=== PATIENT | female | born 1965 ===

== ENCOUNTER 2022-01-31 20:13 | Inpatient (IN) | payer OTHER ==
[~2022-01-31] VITALS: Ht 162.6 cm; Wt 86.8 kg
[2022-02-01] MEDS ORDERED: AMLODAPINE (00:44)
--- NOTE | 2022-02-01 07:37 | NUR ---
SUMMARY OF EVENTS. PT ARRIVED VIA TRANSPORT TEAM AT APPROXIMATELY 2250. PT ON VENTILATOR AND SEDATED WITH PROPOFOL AT 25 MCG/KG/MIN, LEVOPHED RUNNING AT 7 MCG/KG/HR. DR. GAN AND DR. FIELDS CONTACTED, ORDERS OBTAINED FOR LR INFUSION, ANTIBIOTICS, FENTANYL WATCH CASER FOR PAIN AND ALBUMIN. R/IJ CENTRAL LINE PLACED BY DR. GILLIS FOR IV ACCESS. LEVOPHED TITRATED OFF DURING SHIFT. CURRENTLY PT VENT SETTINGS AC/VC 16/450/5/40%, IV PUMPS RUNNING PROPOFOL AT 40 MCG/KG/MIN, FENTANYL WATCH CASER 50 MCG/HR, LR 150 ML/HR. VS STABLE THROUGHOUT SHIFT, SEE ASSESSMENT FOR FURTHER DETAILS. REPORT GIVEN TO ATTILA SANDERS.
[2022-02-01 08:38] LABS: Hemoglobin 11.4 g/dL (11.5-16.0); Mean Corpuscular HGB 30.6 pg (26.0-34.0); Mean Corpuscular HGB Conc 32.6 g/dL (31.5-36.5); Mean Corpuscular Volume 94 fL (80-100); Mean Platelet Volume 10.2 fL (9.1-12.4); Platelet Count 150 K/mm3 (150-400); RDW Standard Deviation 48.2 fL (35.1-46.3); Red Blood Cell Count 3.73 M/mm3 (3.80-5.20); White Blood Cell Count 3.21 K/mm3 (4.00-11.30)
[2022-02-01 08:55] LABS: Albumin, Blood 3.7 g/dL (3.4-5.0); Anion Gap 11 mmol/L (6-16); Blood Urea Nitrogen 33 mg/dL (8-24); Bun/Creatinine Ratio 24.8 (12.0-20.0); CO2, Blood 24 mmol/L (21-32); Calcium, Blood 8.1 mg/dL (8.5-10.1); Chloride, Blood 109 mmol/L (98-108); Creatinine, Blood 1.33 mg/dL (0.40-1.00); Glomerular Filtration Rate 41 (60-); Glucose, Blood 147 mg/dL (70-99); Phosphorus, Blood 5.5 mg/dL (2.5-4.9); Potassium, Blood 4.2 mmol/L (3.5-5.5); Sodium, Blood 144 mmol/L (136-145)
--- NOTE | 2022-02-01 08:55 | NUR ---
ASSUMED CARE OF PT, REPORT RCV'D FROM MARILYN MCDERMOTT. PT INTUBATED AND SEDATED. PT PLACED ON SPONTANEOUS VENT SETTINGS THIS MORNING, PT TOLERATING WELL. PROPOFOL @ 40 MCG/KG/MIN, FENTANYL GTT @ 50 MCG/HR. PT WAKES TO VERBAL STIMULATION, NODS HEAD YES/NO, FOLLOWS COMMANDS. LUQ OSTOMY, VERY MINIMAL SANGUINOUS OUTPUT. RLQ LETI DRAIN WITH 40 ML SEROSANGUINOUS OUTPUT. MIDLINE DRESSING C/D/I. ABDOMEN FIRM WITH SEVERE DISTENTION, TENDER TO PALPATION. BOWEL TONES PRESENT. TEMP PEREZ PLACED AT [facility] IN [place] (UA AND INSERTION RECORDS ON CHART) TOMÁS COLORED URINARY OUTPUT. VSS AT THIS TIME. LEVOPHED REMAINS ON STANDBY, PLAN FOR EXTUBATION.
--- NOTE | 2022-02-01 09:41 | NUR ---
PT EXTUBATED TO 3LNC @0930. SATS 95%, HR 118. PT SON ON HIS WAY TO VISIT.
[2022-02-01 10:06] LABS: BAND PERCENT MAN 20 % (0-8); BASOPHILS PERCENT MAN 0 % (0-2); EOSINOPHILS PERCENT MAN 0 % (0-6); LYMPHOCYTES ABSOLUTE MAN 0.38 K/mm3 (0.84-5.20); LYMPHOCYTES PERCENT MAN 12 % (21-46); METAMYELOCYTE ABSOLUTE MAN 0.89 K/mm3 (0.00-0.00); METAMYELOCYTE PERCENT MAN 28 % (0-0); MONOCYTES ABSOLUTE MAN 0.28 K/mm3 (0.16-1.47); MONOCYTES PERCENT MAN 9 % (4-13); MYELOCYTE ABSOLUTE MAN 0.67 K/mm3 (0.00-0.00); MYELOCYTE PERCENT MAN 21 % (0-0); NEUTROPHILS ABSOLUTE MAN 0.96 K/mm3 (1.96-9.15); SEG NEUTROPHILS PERCENT MAN 10 % (41-73); TOTAL CELLS COUNTED 100
--- NOTE | 2022-02-01 10:51 | NUR ---
PT ALERT AND ORIENTED. FENTANYL GTT INFUSING AT 50 MCG/HR, PT DENIES PAIN AT THIS TIME. VSS. TRANSFER ORDER PLACED FOR SURGICAL STATUS WITH TELE.
--- NOTE | 2022-02-01 13:43 | NUR ---
PATIENT ARRIVED FROM ICU TODAY 02/01/22 AT 1230. PATIENT IS A&OX4. SHE IS ON 3L NC OF OXYGEN. NG TUBE IS CONNECTED TO LOW INTERMITTENT SUCTION WITH GREEN COLOR COMING OUT AN OUTPUT. OSTOMY IN LEFT QUADRANT HAS A PINK STOMA WITH LIGHT RED OUTPUT. HER ZHEN DRAIN IS ON HER RIGHT LOWER QUADRANT THAT HAS RED OUTPUT BUT THE BULB IS STILL COMPRESSED. PATIENT REPORTS HER STOMACH BEING TENDER TO TOUCH. FAMILY IS IN THE ROOM AT BEDSIDE. CALL LIGHT WITHIN REACH.
--- NOTE | 2022-02-01 17:28 | NUR ---
SHIFT SUMMARY: POD 1 HEMICOLECTOMY WITH OSTOMY PATIENT IS A&OX4. VS ARE WNL AND IS ON 4L NC OF OXYGEN. PAIN IS MANAGED WITH FENT TITLE SEARCH MANAGER PUMP. MIDLINE INCISION IS C/D/I. OSTOMY ON THE LUQ IS INTACT WITH LIGHT RED OUTPUT. STOMA IS PINK. ZHEN DRAIN ON THE RLQ HAS RED OUTPUT BUT BULB IS STILL COMPRESSED AND SITE IS INTACT. NG TUBE IS SECURED AND IS ON LOW INTERMITTENT SUCTIONING. OUTPUT OF NG TUBE IS A DARK GREEN COLOR. PATIENT IS TOLERATING ICE CHIPS. PEREZ IS IN PLACE AND DRAINING PER GRAVITY. CENTRAL LINE ON RIGHT SIDE OF NECK IS INFUSING THE TITLE SEARCH MANAGER FENT WELL ABX. CALL LIGHT WITHIN REACH. AT BEDSIDE. THE PLAN IS TO ENCOURAGE PATIENT TO GET UP IN CHAIR DAILY AND TO USE INCENTIVE SPIROMETER.
--- NOTE | 2022-02-02 04:34 | NUR ---
PT IS A&0X4, INDEPENDENT IN BED AND IS ABLE TO MAKE NEEDS KNOWN. TRANSFERRED TO [facility] FROM [facility] IN [place], PT HAD ELISSA COLECTOMY W/ OSTOMY PLACED IN LUQ W/ SMALL REDISH OUTPUT. PAIN IS WELL CONTROLLED WITH MANAGER USER EXPERIENCE PUMP. PT ABLE TO SLEEP MOST OF THIS SHIFT 7+ HOURS, RECEIVING SCHEDULED ABX. HAS TRIPPLE LUMEN IJ IN PLACE FOR ABX THERAPY. NG TUBE SET TO LOW INTERMITTENT SUCTION, PRODUCING GREENISH OUTPUT. ZHEN DRAIN IN RUQ, SCANT OUTPUT THIS SHIFT. PT CALLS APPROPRIATELY. WILL CONTINUE TO MONITOR.
[2022-02-02 04:41] LABS: Hematocrit 34.1 % (33.0-51.0); Hemoglobin 11.1 g/dL (11.5-16.0); Mean Corpuscular HGB 30.7 pg (26.0-34.0); Mean Corpuscular HGB Conc 32.6 g/dL (31.5-36.5); Mean Corpuscular Volume 94 fL (80-100); Mean Platelet Volume 10.5 fL (9.1-12.4); Platelet Count 133 K/mm3 (150-400); RDW Coefficient Variation 14.3 % (11.7-14.2); RDW Standard Deviation 49.8 fL (35.1-46.3); Red Blood Cell Count 3.62 M/mm3 (3.80-5.20); White Blood Cell Count 5.77 K/mm3 (4.00-11.30)
[2022-02-02 05:02] LABS: Albumin, Blood 3.1 g/dL (3.4-5.0); Anion Gap 6 mmol/L (6-16); Blood Urea Nitrogen 21 mg/dL (8-24); Bun/Creatinine Ratio 29.4 (12.0-20.0); CO2, Blood 30 mmol/L (21-32); Calcium, Blood 8.1 mg/dL (8.5-10.1); Chloride, Blood 108 mmol/L (98-108); Creatinine, Blood 0.72 mg/dL (0.40-1.00); Glomerular Filtration Rate >60 (60-); Glucose, Blood 97 mg/dL (70-99); Phosphorus, Blood 2.8 mg/dL (2.5-4.9); Potassium, Blood 3.7 mmol/L (3.5-5.5); Sodium, Blood 144 mmol/L (136-145)
[2022-02-02 05:21] LABS: BAND PERCENT MAN 46 % (0-8); BASOPHILS PERCENT MAN 0 % (0-2); EOSINOPHILS PERCENT MAN 0 % (0-6); LYMPHOCYTES ABSOLUTE MAN 0.75 K/mm3 (0.84-5.20); LYMPHOCYTES PERCENT MAN 13 % (21-46); METAMYELOCYTE ABSOLUTE MAN 0.17 K/mm3 (0.00-0.00); METAMYELOCYTE PERCENT MAN 3 % (0-0); MONOCYTES ABSOLUTE MAN 0.05 K/mm3 (0.16-1.47); MONOCYTES PERCENT MAN 1 % (4-13); MYELOCYTE ABSOLUTE MAN 0.11 K/mm3 (0.00-0.00); MYELOCYTE PERCENT MAN 2 % (0-0); NEUTROPHILS ABSOLUTE MAN 4.67 K/mm3 (1.96-9.15); SEG NEUTROPHILS PERCENT MAN 35 % (41-73); TOTAL CELLS COUNTED 100
--- NOTE | 2022-02-02 05:24 | NUR ---
PT IS A&OX4, INDEPENDENT IN BED AND CALLS APPROPRIATELY. ADMITED FOR ABD AND CONSTIPATION, PT REPORTED NO BM FOR ABOUT 2 WEEKS. PAIN IS CONTROLLED WITH PRN FENTANYL. PT ALSO HAS HX OF ANXIETY, PRN ATIVAN GIVEN. UNABLE TO GIVE PT PO BOWEL MEDICATION, PT UNABLE TO TOLERATE AND BECAME NAUSEOUS AFTER TRYING TO SWALLOW LACTULOSE. NO BMS OR PASSAGE OF FLATUS THIS SHIFT. PT ABLE TO SLEEP 6+ HOURS. WILL CONTINUE TO MONITOR.
--- NOTE | 2022-02-02 12:30 | NUR ---
EKG DONE & IN CHART. DR GAN TO REVIEW.
--- NOTE | 2022-02-02 13:30 | NUR ---
DR GAN REVIEWED EKG. NO NEW ORDERS AT THIS TIME. STATES PATIENT REMAINS ASYMPTOMATIC. CONTINUE TELEMTRY MONITORING.
--- NOTE | 2022-02-02 15:15 | NUR ---
PATIENT C/O CHEST TIGHTNESS & DIFFICULTY BREATHING. ROAD CUTTER JAY GAN, GAVE ORDERS FOR A STAT CT TO RULE OUT A PE.
--- NOTE | 2022-02-02 16:00 | NUR ---
PATIENT REUTURNED FROM IMAGING. NG TUBE ON LOW INT SUCTION.
--- NOTE | 2022-02-02 16:40 | NUR ---
PATIENT TO IMAGING VIA GURNEY. NG TUBE CLAMPED.
--- NOTE | 2022-02-02 17:59 | NUR ---
SHIFT SUMMARY POD 2 COLECTOMY W/ OSTOMY TO LUQ. SCANT AMOUNT OF DRAINAGE T/O SHIFT. LIQUID RED/PINK IN COLOR. ZHEN IN PLACE TO RUQ, ALLAN SS LIQUID. NGTUBE IN PLACE, LIGHT GREEN LIQUID DRAINING TO LOW INT SUCTION. GENEROUS AMOUNT OF ICE CHIPS TAKEN IN TODAY, EDUCATED PATIENT ON PO INTAKE AT THIS TIME AND ENCOURAGED TO TAKE SLOW. ANA REMOVED THIS AM. UP TO CHAIR & BEDSIDE COMMODE THROUGHOUT DAY, TOLERATED WELL, WEAK THROUGHOUT. PAIN MANAGED WITH FENTANYL POLICY SERVICE COORDINATOR PUMP. PATIENT HAD EPISODE OF CHEST TIGHTNESS AND SOB, CT SCAN ORDERED BY MD AND AWAITING RESULTS. ENCOURAGED TO NOTIFY STAFF OF ACUTE CHANGES IMMEDIETLY. HEART RATE REMAINS TACHY IN 130'S, MD AWARE, TELE IN PLACE. PATIENT REPORTS FEELING BETTER THIS AFTERNOON. WILL CONTINUE TO MONITOR & REPORT TO ONCOMING RN.
--- NOTE | 2022-02-03 03:40 | NUR ---
PT IS A&OX4, MODERATE ASSIST TO BSC AND CALLS APPORPRIATELY. PT IS STILL SINUS TACH ON TELE, REPORTS THAT SHE HAS NOT TAKEN BP MEDS SINCE SHE CAME TO HOSPITAL ON THE . OSTOMY HAS NOT PRODUCED ANY STOOL THIS SHIFT, ONLY SCANT RED OUTPUT, NO FLATUS. PAIN IS CONTROLLED WITH INDUSTRIAL MAINTENANCE MILLWRIGHT PUMP. ZHEN DRAIN PRODUCING SMALL OUTPUT THIS SHIFT. PT ABLE TO VIOD IN BSC WITH ASSISTANCE FROM STAFF. MIDLINE DRESSING IS CDI. WILL CONTINUE TO MONITOR THIS PATIENT
[2022-02-03 04:27] LABS: Hematocrit 33.5 % (33.0-51.0); Hemoglobin 10.7 g/dL (11.5-16.0); Mean Corpuscular HGB 30.8 pg (26.0-34.0); Mean Corpuscular HGB Conc 31.9 g/dL (31.5-36.5); Mean Corpuscular Volume 97 fL (80-100); Mean Platelet Volume 10.5 fL (9.1-12.4); Platelet Count 126 K/mm3 (150-400); RDW Coefficient Variation 14.7 % (11.7-14.2); RDW Standard Deviation 52.4 fL (35.1-46.3); Red Blood Cell Count 3.47 M/mm3 (3.80-5.20); White Blood Cell Count 9.75 K/mm3 (4.00-11.30)
[2022-02-03 04:42] LABS: Albumin, Blood 2.6 g/dL (3.4-5.0); Anion Gap 6 mmol/L (6-16); Blood Urea Nitrogen 19 mg/dL (8-24); Bun/Creatinine Ratio 27.8 (12.0-20.0); CO2, Blood 30 mmol/L (21-32); Calcium, Blood 8.5 mg/dL (8.5-10.1); Chloride, Blood 112 mmol/L (98-108); Creatinine, Blood 0.68 mg/dL (0.40-1.00); Glomerular Filtration Rate >60 (60-); Glucose, Blood 65 mg/dL (70-99); Magnesium, Blood 2.7 mg/dL (1.6-2.4); Potassium, Blood 3.4 mmol/L (3.5-5.5); Sodium, Blood 148 mmol/L (136-145)
[2022-02-03 04:48] LABS: BAND PERCENT MAN 17 % (0-8); BASOPHILS PERCENT MAN 0 % (0-2); EOSINOPHILS ABSOLUTE MAN 0.09 K/mm3 (0.00-0.68); EOSINOPHILS PERCENT MAN 1 % (0-6); LYMPHOCYTES ABSOLUTE MAN 0.68 K/mm3 (0.84-5.20); LYMPHOCYTES PERCENT MAN 7 % (21-46); MONOCYTES ABSOLUTE MAN 0.29 K/mm3 (0.16-1.47); MONOCYTES PERCENT MAN 3 % (4-13); NEUTROPHILS ABSOLUTE MAN 8.67 K/mm3 (1.96-9.15); SEG NEUTROPHILS PERCENT MAN 72 % (41-73); TOTAL CELLS COUNTED 100
--- NOTE | 2022-02-03 17:35 | NUR ---
SHIFT SUMMARY NO ACUTE CHANGES THIS SHIFT. REMAINS TACHYCARDIC IN THE 110'S, TELE REMAINS IN PLACE. DENIES CP/SOB. ABDOMEN FEELS TO STILL BE DISTENDED, ALTHOUGH PATIENT REPORTS "IT FEELS NORMAL". DENIES N/V, NG TUBE IN PLACE TO LOW INT SUCTION, LIGHT GREEN/CLEAR OUTPUT. TOLERATING ICE CHIPS. UP TO BSC TO VOID PRN. WILL CONTINUETO MONITOR AND REPORT TO ONCOMING RN.
--- NOTE | 2022-02-04 03:31 | NUR ---
DURING AMBULATION TO BSC IT WAS NOTICED THAT THE NG TUBE WAS PULLED OUT PAST THE NOTED POINT IN THE CHART. NG TUBE WAS REINSERTED BACK TO KATHY ON TUBE. ORDER FOR XRAY OBTAINED, AND READ BY ED MD DR. MONTESINOS. DR MONTESINOS NOTED THAT TUBE WAS IN STOMACH SO LOW INTERMITTENT SUCTION RESTARTED.
--- NOTE | 2022-02-04 03:39 | NUR ---
PT IS A&OX4, MIN ASSIST TO BSC AND IS ABLE TO MAKE NEEDS KNOWN. PT ON TELE, REMAINS SINUS TACH IN THE 110'S, IS ASYMPTOMATIC. PT IS NPO BUT ALLOWED 2 TO 3 CUPS OF ICE PER DAY. NOT MUCH SLEEP THIS NIGHT, THIS NURSE NOTICED THAT THE NG TUBE WAS NOT AT THE CORRECT MARKER SO TUBE WAS REINSERTED TO THE NOTED KATHY AND CXR WAS OBTAINED, ED MD READ CXR AND NOTED THAT THE TUBE WAS IN THE STOMACH SO LOW INTERMITTENT SUCTION WAS RESTARTED. NO OUTPUT TO OSTOMY BAG THIS SHIFT. PAIN IS WELL CONTROLLED WITH ORGANIZATIONAL RESEARCH CONSULTANT FENTANYL. PT ABLE TO FALL ASLEEP AFTER CXR AND SUCTION RESTARTED. WILL CONTINUE TO MONITOR THIS PT AND REPORT TO ONCOMING NURSE.
[2022-02-04 05:12] LABS: Anion Gap 6 mmol/L (6-16); Blood Urea Nitrogen 16 mg/dL (8-24); Bun/Creatinine Ratio 27.7 (12.0-20.0); CO2, Blood 29 mmol/L (21-32); Calcium, Blood 8.4 mg/dL (8.5-10.1); Chloride, Blood 114 mmol/L (98-108); Creatinine, Blood 0.58 mg/dL (0.40-1.00); Glomerular Filtration Rate >60 (60-); Glucose, Blood 179 mg/dL (70-99); Magnesium, Blood 2.4 mg/dL (1.6-2.4); Phosphorus, Blood 1.1 mg/dL (2.5-4.9); Potassium, Blood 3.2 mmol/L (3.5-5.5); Sodium, Blood 149 mmol/L (136-145)
--- NOTE | 2022-02-04 19:46 | NUR ---
SHIFT SUMMARY PT A&OX4, VSS/4LNC/BIOX ON, TELE ST 106. OSTOMY WITH SMALL AMT BLOOD/BROWN LIQUID OUT, MIDLINE VÍCTOR W/MEDIPORE CDI. PAIN MANAGED WITH FENT LEATHER FITTER CONT/DEMAND. AMB TO BRP, SHOWERED TODAY, UP TO CHAIR T/O SHIFT, VOIDING WELL. REPORT PROVIDED TO VERNON SANDERS.
--- NOTE | 2022-02-05 04:16 | NUR ---
SHIFT SUMMARY PT RESTED WELL. DRESSING TO ABD REMAINS CDI. COLOSTOMY WITH NO FLATUS OR OUTPUT THIS SHIFT, BUT STOMA REMAINS MOIST AND BEEFY RED. BTS REMAIN ACTIVE. ABD MODERATELY DISTENDED AND FIRM. USING FENTANYL DIMENSION MILL WORKER FOR RELIEF. UP TO BSC WITH 1 SBA. TOLERATING MINIMAL SIPS OF CLEAR LIQUIDS. IVF INFUSING PER ORDERS. TELE IN PLACE AND PT REMAINS TACHYCARDIC. USES CALL LIGHT APPROPRIATELY.
[2022-02-05 05:05] LABS: Hematocrit 39.6 % (33.0-51.0); Hemoglobin 12.7 g/dL (11.5-16.0); Mean Corpuscular HGB 30.2 pg (26.0-34.0); Mean Corpuscular HGB Conc 32.1 g/dL (31.5-36.5); Mean Corpuscular Volume 94 fL (80-100); Mean Platelet Volume 10.8 fL (9.1-12.4); Platelet Count 141 K/mm3 (150-400); RDW Coefficient Variation 14.9 % (11.7-14.2); RDW Standard Deviation 52.1 fL (35.1-46.3); Red Blood Cell Count 4.21 M/mm3 (3.80-5.20); White Blood Cell Count 10.56 K/mm3 (4.00-11.30)
[2022-02-05 05:26] LABS: Anion Gap 5 mmol/L (6-16); Blood Urea Nitrogen 11 mg/dL (8-24); Bun/Creatinine Ratio 22.6 (12.0-20.0); CO2, Blood 30 mmol/L (21-32); Calcium, Blood 8.1 mg/dL (8.5-10.1); Chloride, Blood 105 mmol/L (98-108); Creatinine, Blood 0.49 mg/dL (0.40-1.00); Glomerular Filtration Rate >60 (60-); Glucose, Blood 133 mg/dL (70-99); Magnesium, Blood 2.3 mg/dL (1.6-2.4); Phosphorus, Blood 2.7 mg/dL (2.5-4.9); Potassium, Blood 3.1 mmol/L (3.5-5.5); Sodium, Blood 140 mmol/L (136-145)
[2022-02-05 05:32] LABS: BAND PERCENT MAN 4 % (0-8); BASOPHILS PERCENT MAN 0 % (0-2); EOSINOPHILS ABSOLUTE MAN 0.21 K/mm3 (0.00-0.68); EOSINOPHILS PERCENT MAN 2 % (0-6); LYMPHOCYTES ABSOLUTE MAN 1.05 K/mm3 (0.84-5.20); LYMPHOCYTES PERCENT MAN 10 % (21-46); MONOCYTES ABSOLUTE MAN 1.26 K/mm3 (0.16-1.47); MONOCYTES PERCENT MAN 12 % (4-13); NEUTROPHILS ABSOLUTE MAN 8.02 K/mm3 (1.96-9.15); SEG NEUTROPHILS PERCENT MAN 72 % (41-73); TOTAL CELLS COUNTED 100
--- NOTE | 2022-02-05 19:33 | NUR ---
SHIFT SUMMARY PT A&OX4, VSS/RA/DEEP BREATHING & I.S. EDU & ENC, VOIDING WELL, AMB TO BRP AND IN HALLWAY, WITH SBA/FWW/UP TO CHAIR, STANLEY PO SIPS/CHIPS. POD5/OSTOMY HAS BROWN STOOL AND FLATUS OUTPUT; ENCOURAGED PT TO WATCH OSTOMY VIDEOS, SHE DECLINED OUR COMPUTER AND CONVATEC VIDS, STATED SHE WILL WATCH ON HER OWN PHONE-NEEDS ENCOURAGEMENT. PAIN TREATED WITH NORCO 10 MG AND FENT 25 Q2P. REPORT PROVIDED TO VERNON SANDERS.
--- NOTE | 2022-02-06 04:01 | NUR ---
SHIFT SUMMARY PT RESTED WELL T/O NIGHT. 2 NORCO + FENTANYL FOR PAIN PRN. MIDLINE ABD DRESSING REMAINS CDI. COLOSTOMY WITH FORMED BROWN STOOL AND SMALL AMOUNT OF FLATUS. STANLEY CLEAR LIQS. 1 SBA WITH FWW TO BRP AND WITH AMBULATION. SIG OTHER AT BEDSIDE FOR SUPPORT. USES CALL LIGHT APPROPRIATELY.
--- NOTE | 2022-02-06 16:23 | NUR ---
SHIFT SUMMARY: POD 5 HEMICOLECTOMY WITH OSTOMY PATIENT IS A&OX4. BP HAS BEEN HIGH BUT HAS PRN HYDRALAZINE. OTHERWISE VS ARE WNL AND IS ON RA. PAIN IS MANAGED WITH PO NORCO. OSTOMY IS PRODUCING BROWN THICK OUTPUT WELL GAS. PATIENT HAS BEEN ABLE TO EMPTY HERSELF TODAY. MIDLINE DRESSING IS C/D/I. SHE IS TOLERATING PO INTAKE AND IS VOIDING. SHE IS A SBA WITH GAIT BELT. AT BEDSIDE. CALL LIGHT WITHIN REACH. THE PLAN IS TO BE DISCHARGED HOME TOMORROW IF APPROPRIATE. CONTINUING OSTOMY EDUCATION WITH PATIENT AND . ENCOURAGING USE OF INCENTIVE SPIROMETER.
--- NOTE | 2022-02-07 06:25 | NUR ---
PT IS A&OX4, SBA TO BR AND IS ABLE TO MAKE NEEDS KNOWN. NO ACUTE CHANGES THIS SHIFT. PT RESTES 7+ HOURS, PAIN WELL CONTROLLED WITH PRN NORCO 2 TABS. PT SPOUSE IN ROOM. PT OSTOMY PRODUCING BROWN STOOL AND PASSING FLATUS. PT ABLE TO TAKE MEDS WHOLE WITH THINS. CALLS APPROPRIATELY. WILL CONTINUE TO MONITOR THIS PT AND GIVE HANDOFF REPORT TO ONCOMING NURSE.
--- NOTE | 2022-02-07 17:54 | NUR ---
SHIFT SUMMARY PT CONTINUES TO HAVE SCANT OUTPUT FROM HER COLOSTOMY. PT'S ABDOMEN HAS BEEN NOTED TO BE TIGHT AND TENDER. PT'S PO INTAKE HAS BEEN REDUCED TO A MINIMUM TO PREVENT NAUSEA AND VOMITING. PT'S PAIN CONTROLLED W/ NORCO ADMINISTERED PER NOV. PT HAS BEEN ABLE TO AMBULTE W/ FWW & SBA TO THE RESTROOM MULTIPLE TIMES THROUGHOUT THE SHIFT. PT CONTINUES TO REST IN BED AT THIS TIME. WILL UPDATE IF NECESSARY.
--- NOTE | 2022-02-08 04:13 | NUR ---
SUMMARY PT SLEPT WELL T/O THE NIGHT. PAIN TX PER EMAR WITH RELIEF. PATIENTS ABDOMEN REMAINS DISTANDED AND TENDER T/O SHIFT. PATIENT PASSING VERY SOFT GREEN STOOL FROM STOMA. AMBULATED SBA WITH FWW TO THE BATHROOM WITH NO COMPLICATIONS. PT IS CURRENTLY SLEEPING, CALL LIGHT IN REACH.
[2022-02-08 05:19] LABS: BASOPHILS ABSOLUTE AUTO 0.06 K/mm3 (0.00-0.23); BASOPHILS PERCENT AUTO 0 % (0-2); EOSINOPHILS PERCENT AUTO 1 % (0-6); Hematocrit 33.9 % (33.0-51.0); Hemoglobin 11.1 g/dL (11.5-16.0); IMMATURE GRAN ABSOLUTE AUTO 0.21 K/mm3 (0.00-0.10); IMMATURE GRAN PERCENT AUTO 1 % (0-1); LYMPHOCYTES ABSOLUTE AUTO 1.81 K/mm3 (0.84-5.20); LYMPHOCYTES PERCENT AUTO 11 % (21-46); MONOCYTES ABSOLUTE AUTO 1.22 K/mm3 (0.16-1.47); MONOCYTES PERCENT AUTO 8 % (4-13); Mean Corpuscular HGB 30.6 pg (26.0-34.0); Mean Corpuscular HGB Conc 32.7 g/dL (31.5-36.5); Mean Corpuscular Volume 93 fL (80-100); NEUTROPHILS ABSOLUTE AUTO 12.84 K/mm3 (1.96-9.15); NEUTROPHILS PERCENT AUTO 79 % (41-73); Platelet Count 326 K/mm3 (150-400); RDW Coefficient Variation 15.3 % (11.7-14.2); RDW Standard Deviation 52.3 fL (35.1-46.3); Red Blood Cell Count 3.63 M/mm3 (3.80-5.20); White Blood Cell Count 16.24 K/mm3 (4.00-11.30)
[2022-02-08 05:53] LABS: Bun/Creatinine Ratio 40.3 (12.0-20.0); Calcium, Blood 8.7 mg/dL (8.5-10.1); Creatinine, Blood 0.45 mg/dL (0.40-1.00); Magnesium, Blood 2.3 mg/dL (1.6-2.4); Phosphorus, Blood 4.3 mg/dL (2.5-4.9); Potassium, Blood 3.4 mmol/L (3.5-5.5)
--- NOTE | 2022-02-08 07:53 | NUR ---
WBC ELEVATED IN MORNING LABS, VITALS TAKEN AND SURGEON UPDATED ON PT CONDITION WITH NEW ORDERS ENTERED. NEW LABS DRAWN, PT TAKEN FOR CT AT THIS TIME.
[2022-02-08 08:08] LABS: Prothrombin Time Results 10.5 Sec (9.7-11.5)
--- NOTE | 2022-02-08 16:53 | NUR ---
SHIFT SUMMARY AT BEGINNING OF SHIFT, PT REPORTED FEELING FLUSHED WHILE HAVING A TEMPERATURE OF 100.0F AND A HEART RATE OF 140. PT'S CONDITION REPORTED TO DR GAN. PT HAD CT SCAN DONE SHOWING NO PERFORATION OF THE BOWEL BUT SOME INFLAMMATION. PT GIVEN MEDICATIONS ORDERED, INCLUDING ANTIBIOTICS AND NORCO FOR PAIN CONTROL. PER DR GAN, PT CAN HAVE ICE CHIPS AND SMALL SIPS OF CLEAR LIQUIDS. APPROX 100ML OF LIQUID, UNFORMED STOOL DRAINED FROM THE STOMA THIS AM. PT RESTING IN ROOM AT THIS TIME. WILL CONTINUE TO MONITOR AND UPDATE NECESSARY.
--- NOTE | 2022-02-09 05:34 | NUR ---
SHIFT SUMMARY A/O X4. POD9 HEMICOLECTOMY W/ COLOSTOMY- MIDLINE INCISION DRESSING W/ SCANT AMOUNT OF DRAINAGE. OSTOMY PUTTING OUT FLATUS AND BROWN LIQUID STOOLS. VOIDING WELL. ABDOMEN MODERATLY DISTENDED, BOWEL TONES HYPOACTIVE IN ALL 4 QUADRANTS. PT REMAINED NPO THROUGHOUT SHIFT. PAIN MANAGED WITH REPOSITIONING AND PAIN MEDICATION PER EMAR. PLEASANT AND COOPERATIVE WITH CARE, VITAL SIGNS STABLE. WILL CONTINUE TO MONITOR AND REPORT TO ONCOMING RN.
--- NOTE | 2022-02-09 14:32 | NUR ---
SHIFT SUMMARY: A&Ox4. VSS TODAY. MIDLINE MEDIPORE DRESSING AND OSTOMY BAG CHANGED TODAY. EDUCATION PROVIDED RE CHANGING APPLIANCE AND BAG. STOMA BEEFY W/O S/SX INFX, PRODUCING BROWN, SOFT STOOL. AMBULATES W/ SBA ASSIST PROVIDED BY . WALKING HALLS AND OUTSIDE FOR FRESH AIR. ADV FULL LIQUID DIET PER DR RODRIGUEZ; TOLERATING PO INTAKE WELL. PLEASANT AND COOPERATIVE WITH CARE. PT ANTICIPATING DC TOMORROW OR FRIDAY.
--- NOTE | 2022-02-10 05:24 | NUR ---
SHIFT SUMMARY A/O X4. POD10 HEMICOLECTOMY WITH COLOSTOMY. OSTOMY PUTTING OUT MODERATE AMOUNT OF STOOL AND FLATUS. APPLIANCE CHANGED DUE TO RED DRAINAGE FROM UMBILICUS. ABDOMINAL INCISION COVERED WITH MEDIPORE, CHANGED THIS SHIFT. PT REPORTS NO CHANGE IN ABDOMINAL DISTENTION- FIRM AND SLIGHTLY TENDER TO PALPATION. VOIDING WELL. TOLERATING FULL LIQUID DIET, NO N/V REPORTED. PLEASANT AND COOPERTIVE WITH CARE, WILL CONINUE T MONITOR AND REPORT TO ONCOMING RN.
--- NOTE | 2022-02-10 09:30 | NUR ---
SHIFT ASSESSMENT PT RESTING IN BED WITH HER AT THE BEDSIDE. PT IS ALERT AND ORIENTED ALTHOUGH SHE REPORTS FEELING ANXIOUS. PT STATES SHE WANTS TO GO HOME TODAY. LUNG SOUNDS ARE DIM/CRACKLY IN THE BASES. HEART SOUNDS REGULAR. HYPERACTIVE TYMPANIC BOWEL SOUNDS, PT FINISHED EATING PRIOR TO ASSESSMENT. ABD IS DISTENDED. PT REPORTED TOLERATING HER BREAKFAST WITHOUT INCREAED NAUSEA. ABD MINLINE INCISION IS COVERED WITH MEDIPORE DRESSING, SMALL AMOUNT OF SEROSANGUINOUS DRAINAGE ON DRESSING. ASSESSMENT FINDINGS BY JUAN C STUDENT NURSE ARE IN AGREEANCE WITH FINDINGS BY THIS RN.
--- NOTE | 2022-02-10 11:12 | NUR ---
DR. RODRIGUEZ ROUNDED ON PT. DR REMOVED ABDOMINAL DRESSING AND ASSESSED INCISION. SMALL AMOUNT OF DRAINAGE WAS NOTED. SPOKE WITH PT STATING THAT HE DID NOT FEEL SHE WAS READY TO BE DISCHARGED TODAY. SHAUNNA SANDERS APPLIED A NEW MEDIPORE DRESSING TO ABD INCISION. CALL LIGHT WITHIN REACH.
--- NOTE | 2022-02-10 11:12 | NUR ---
DR. RODRIGUEZ NOTIFIED OF CONTINUED ELEVATED HR, LOW GRADE FEVER, ELEVATED RESPIROATORY RATE AND CRACKLES PRESENT TO THE BASES OF THE LUNGS. HE WAS ALSO NOTIFIED TO SCANT REDNESS PRESENT TO RLQ.
--- NOTE | 2022-02-10 17:31 | NUR ---
SHIFT SUMMARY PT IS A&O X4. PT IS HERE FOR COLECTOMY WITH COLOSTOMY. AND PET DOG HAVE BEEN STAYIG AT BEDSIDE. WHEN GIVING MEDICATIONS AND PERFORMING ASSESSMENT THIS MORNING, PT BECAME EMOTIONAL AND STATED SHE "JUST WANTED TO GO HOME". LATER PT EXPLAINED THAT SHE PREFERS TO HAVE A SLOWER AND CALMER ENVIRONMENT IN THE MORNING. PT HAS HAS BEEN HAVING A LOW GRADE FEVER AND CRACKLES IN THE BASES OF LUNGS. PT HAS BEEN ENCOURGED TO DEEP BREATH, USE INCENTIVE SPIROMETER AND AMBULATE. PT IS INDEPENDENT IN ROOM. PT AND HAVE BEEN CARING FOR OSTOMY. PT HAS BEEN AMBULATING IN GABRIEL WITH FWW AND . ABD DRESSING HAS REMAINED C/D/I SINCE DRESSING CHANGE THIS MORNING. VERY FAINT SHADOWING CAN BE SEEN THROUGH DRESSING. WILL CONTINUE TO MONITOR
--- NOTE | 2022-02-10 21:38 | NUR ---
PT WITH MILD APPEARING INCEASE WORK OF BREATHING.WHEN ASKE, SHE ADMITS HAS REQUIRED MORE EFFORT TO DEEP BREATHE, BUT STATES DOES NOT FEEL "GASPY" PT WAS MEDICATED PO FOR PAIN TO DETERMINE IF PAIN MAY BE CAUSING INCREASE EFFORT. PAIN MEDS EFFECTED NO CHANGE. PT ALSO HAS HAD TACHYCARDIA,CURRENTLY RATE 111. PT ALSO HAS HAD CRACKLES NOTED TO BASES.SATS REMAIN STABLE.ALTHOUGH 1 L N/C PT REPORTS HELPING.I /O PRESENTS APPROX 1.5 L OVER.HOWEVER,OUTPUT HAS NOT BEEN DETAILED.PT DID HAE NOTED CRACKLES AND SOB ON 02/06/22 AND PER PHARM RECORDS,RECEIVED LASIX IV.I DISCUSSED WITH PT AND KEEPING DETAILED I/O AND TO CALL NURSE RIGHT AWAY IF ANY WORSENING.I CALLED DR RODRIGUEZ TO ADVISE OF ABOVE NOTING WBC ALSO INCREASING AND RECEIVED ORDER FOR LASIX 20 MG PO. DID NOT WISH TO ORDER CXR.
--- NOTE | 2022-02-11 08:19 | NUR ---
SUMMARY VOIDING AFTER LASIX, BUT NOT LARGE VOLUME. WOB APPEARS IMPROVED THIS AM.PT HAS BEEN CDB AND USING IS TONIGHT.
[2022-02-11] MEDS ORDERED: AMLO10 PO (10:28)
[2022-02-11] MEDS ORDERED: ACET325 PO (10:28)
[2022-02-11] MEDS ORDERED: Norco 5-325 Ta1 EACH PO (10:29)
[2022-02-11] MEDS ORDERED: METO25 PO (10:29)
[2022-02-11] MEDS ORDERED: AMOCLA875 PO (10:30)
--- NOTE | 2022-02-11 11:31 | NUR ---
DISCHARGE PT EXCITED TO DC HOME. SEVERAL OSTOMY SUPPLIES & FWW WERE SENT. GOT SCRIPTS FILLED THIS AM. PHONE NUMBERS FOR HOME HEALTH, ANAI, & DR BARROW OFFICE GIVEN IN DISCHARGE INSTRUCTIONS. PT CARING FOR OWN OSTOMY & FEELS COMFORTABLE. ESCORTED OUT VIA WC.
== END 2022-02-11 11:38 | disposition home or self-care (01) | DRG 392 ==
LOC: SURS 23:07 → ICUE 23:07 → SURS 02-01 12:45
PROVIDERS: Internal Medicine Critical Care Medicine; ADMIT Surgery
PROC: 3E033XZ Introduction of Vasopressor into Peripheral Vein, Percutaneous Approach (ICD-10-PCS; principal; 2022-01-31)
PROC: 5A1935Z Respiratory Ventilation, Less than 24 Consecutive Hours (ICD-10-PCS; 2022-01-31)
PROC: 02HV33Z Insertion of Infusion Device into Superior Vena Cava, Percutaneous Approach (ICD-10-PCS; 2022-01-31)
DX: K57.20 Diverticulitis of large intestine with perforation and abscess without bleeding (principal); R57.9 Shock, unspecified; I97.191 Other postprocedural cardiac functional disturbances following other surgery; E83.39 Other disorders of phosphorus metabolism; E87.6 Hypokalemia; I10 Essential (primary) hypertension; K21.9 Gastro-esophageal reflux disease without esophagitis; Z98.890 Other specified postprocedural states; Z79.899 Other long term (current) drug therapy; Y83.8 Other surgical procedures as the cause of abnormal reaction of the patient, or of later complication, without mention of misadventure at the time of the procedure
CPT/HCPCS: 36415; 36556; 71045; 71260; 74018; 74177; 80048; 80069; 83735; 84100; 85025; 85610; 93005; 93010; 94002; 94003; 94762; 97110; 97116; 97162; A9270; C1751; C9113; J0360; J1644; J1650; J1940; J2250; J2543; J2704; J3010; J3411; J7040; J7060; J7120; P9046; Q9967